=== PATIENT | male | born 1975 | race Caucasian/White ===

== ENCOUNTER 2023-06-17 12:19 | Outpatient (CLI) | payer BC | END 2023-06-17 12:20 | disposition home or self-care (01) | LOC: BICRAD 12:19 | PROVIDERS: ATTEND Physician Assistant | DX: M43.16 Spondylolisthesis, lumbar region (principal); M47.816 Spondylosis without myelopathy or radiculopathy, lumbar region | CPT/HCPCS: 72100 ==

== ENCOUNTER 2024-04-19 10:44 | Outpatient (CLI) | payer OTHER | END 2024-04-19 10:45 | disposition home or self-care (01) | LOC: SCSMRI 10:44 | PROVIDERS: ATTEND Nurse Practitioner Family | DX: S86.812A Strain of other muscle(s) and tendon(s) at lower leg level, left leg, initial encounter (principal); S83.242A Other tear of medial meniscus, current injury, left knee, initial encounter; S76.112A Strain of left quadriceps muscle, fascia and tendon, initial encounter | CPT/HCPCS: 70210 ==

== ENCOUNTER 2024-04-24 15:02 | Outpatient (CLI) | payer BC, OTHER ==
[2024-04-24 15:58] LABS: #Basophils 0.03 10x3/uL (0.0-0.2); %Basophils 0.5 % (0.0-1.0); %Eosinophils 1.9 % (0.0-10.0); %Lymphocytes 26.7 % (21.0-51.0); %Monocytes 6.5 % (0.0-10.0); %Neutrophils 64.2 % (42.0-75.0); Hematocrit 45.7 % (42.0-52.0); Hemoglobin 15.9 g/dL (14.0-18.0); Mean Corpuscular HGB CONC 34.8 g/dL (32.0-36.0); Mean Corpuscular Hemoglobin 31.9 pg (27.0-31.0); Mean Corpuscular Volume 91.8 fL (78.0-98.0); Mean Platelet Volume 9.9 fL (7.4-10.4); Platelet Count 158 10x3/uL (130-400); RBC Distribution Width 11.6 % (11.5-14.5); Red Blood Cell (RBC) Count 4.98 mill/uL (4.70-6.10)
[2024-04-24 16:21] LABS: Anion Gap 11 mmol/L (10-20); BUN (Urea Nitrogen) 32 mg/dL (8.9-20.6); Calc. Creatinine Clearance 0 mL/min (70-130); Calcium 9.9 mg/dL (7.8-10.44); Carbon Dioxide 31 mmol/L (22-29); Chloride 101 mmol/L (98-107); Estimated GFR 74; Glucose 84 mg/dL (70-105); Potassium 4.4 mmol/L (3.5-5.1); Sodium 139 mmol/L (136-145)
== END 2024-04-24 15:03 | disposition home or self-care (01) ==
LOC: LABBT 15:02
PROVIDERS: ATTEND Orthopaedic Surgery
DX: Z01.812 Encounter for preprocedural laboratory examination (principal); S86.812A Strain of other muscle(s) and tendon(s) at lower leg level, left leg, initial encounter; S83.212A Bucket-handle tear of medial meniscus, current injury, left knee, initial encounter
CPT/HCPCS: 80048; 85025

== ENCOUNTER 2024-04-25 06:18 | Day surgery (SDC) | payer OTHER ==
[2024-04-24 15:21] VITALS: BMI 23.7
[2024-04-25] MEDS ORDERED: Midazolam HCl 2 mg/2 ml Vial ONE (07:04)
[2024-04-25] MEDS ORDERED: EPINEPHrine 1 MG/ML VIAL ONE (07:04)
[2024-04-25] MEDS ORDERED: fentaNYL 50 mcg/mL 1 mL Vial ONE ×3 (07:04→10:53)
[2024-04-25] MEDS ORDERED: Bupivacaine PF 0.5% 30 ML VIAL ONE (07:05)
[2024-04-25] MEDS ORDERED: Lidocaine 1% (PF) 30 ML VIAL ONE (07:05)
[2024-04-25] MEDS ORDERED: Tranexamic Acid 1,000 MG/10 ML VIAL ONE (07:19)
[2024-04-25] MEDS ORDERED: Sodium Chloride 0.9% 100 ML ONE (07:19)
[2024-04-25] MEDS ORDERED: CEFAZOLIN 2 GM VIAL ONE (07:21)
[2024-04-25] MEDS ORDERED: PROPOFOL 20 ML ONE ×2 (07:37→07:44)
[2024-04-25] MEDS ORDERED: Lidocaine 1% PF 5 ML VIAL ONE (07:37)
[2024-04-25] MEDS ORDERED: Zolpidem Tartrate 5 MG TAB PO PRN (07:45)
[2024-04-25] MEDS ORDERED: HYDROcodone/Acetaminophen 10/325 mg Tablet PO PRN ×2 (07:45)
[2024-04-25] MEDS ORDERED: Ondansetron PF 4 MG/2 ML Vial IVP PRN (07:45)
[2024-04-25] MEDS ORDERED: Promethazine HCl 25 MG/ML VIAL IM PRN (07:45)
[2024-04-25] MEDS ORDERED: traMADol HCl 50 MG TAB PO PRN ×2 (07:45)
[2024-04-25] MEDS ORDERED: Ropivacaine 0.2% 550 ML 550 ML NERVE BLCK SCH (07:45)
[2024-04-25] MEDS ORDERED: fentaNYL 50 mcg/mL 1 mL Vial SLOW IVP PRN (07:45)
[2024-04-25] MEDS ORDERED: Dexamethasone 20 MG/5 ML VIAL ONE (07:57)
[2024-04-25] MEDS ORDERED: Ondansetron PF 4 MG/2 ML Vial ONE ×2 (07:57→11:41)
[2024-04-25] MEDS ORDERED: Ketorolac Tromethamine 30 MG (1 mL) VIAL ONE (09:36)
[2024-04-25] MEDS ORDERED: fentaNYL PF 100 MCG/2 ML SYRINGE ONE (10:29)
[2024-04-25] MEDS ORDERED: Ketorolac Tromethamine 30 MG (1 mL) VIAL IVP SCH (12:00)
== END 2024-04-25 13:03 | disposition home or self-care (01) ==
LOC: SDC 06:18
PROVIDERS: ATTEND Student in an Organized Health Care Education/Training Program
PROC: 0SBD4ZZ Excision of Left Knee Joint, Percutaneous Endoscopic Approach (ICD-10-PCS; principal; 2024-04-25)
DX: S83.212A Bucket-handle tear of medial meniscus, current injury, left knee, initial encounter (principal); S86.821A Laceration of other muscle(s) and tendon(s) at lower leg level, right leg, initial encounter; X58.XXXA Exposure to other specified factors, initial encounter
CPT/HCPCS: A4306; C1713; J0171; J0665; J1100; J1885; J2250; J2405; J2704; J2795; J3010

== ENCOUNTER 2025-02-28 10:26 | Outpatient (CLI) | payer OTHER | END 2025-02-28 10:28 | disposition home or self-care (01) | PROVIDERS: ATTEND Student in an Organized Health Care Education/Training Program | DX: S83.242D Other tear of medial meniscus, current injury, left knee, subsequent encounter (principal); M25.562 Pain in left knee ==

== ENCOUNTER 2025-05-09 10:20 | Outpatient (CLI) | payer OTHER | END 2025-05-09 10:21 | disposition home or self-care (01) | LOC: SCSMRI 10:20 | PROVIDERS: ATTEND Student in an Organized Health Care Education/Training Program | DX: M25.362 Other instability, left knee (principal); M71.22 Synovial cyst of popliteal space [Baker], left knee; M25.462 Effusion, left knee; S76.112A Strain of left quadriceps muscle, fascia and tendon, initial encounter; Z98.890 Other specified postprocedural states ==